=== PATIENT | female | born 1990 | race Two or more races ===

== ENCOUNTER 2024-12-06 13:07 | Emergency (ER) | payer OTHER ==
[2024-12-06 13:15] VITALS: BP 101/70; PULSE 100; RESP 20; TEMP 98.1; BMI 30.9
[2024-12-06 14:09] LABS: ABSOLUTE IMMATURE GRANULOCYTES 0.02 x10^3/uL (0.0-0.031); BASOPHILS # 0.02 x10^3/uL (0.01-0.08); EOSINOPHIL % 0.6 % (0.7-5.8); EOSINOPHILS # 0.04 x10^3/uL (0.04-0.36); HEMATOCRIT 42.3 % (34.1-44.9); MCHC 33.1 g/dl (32.2-35.5); MEAN CELL VOLUME 92.6 fl (79.4-94.8); MEAN PLT VOLUME 9.7 fl (9.4-12.3); MONOCYTE # 0.35 x10^3/uL (0.24-0.86); MONOCYTE % 5.6 % (4.7-12.5); PLATELET COUNT 251 x10^3/uL (182-369); RDW 13.6 % (12.1-16.8)
[2024-12-06 14:15] LABS: HCG,QUALITATIVE URINE Positive
[2024-12-06 14:18] LABS: EPI CELLS >36 /uL (0-25.1); HYALINE CASTS 1 /uL (0-3.1); PH,URINE 5.5 (5.0-8.0); URINE APPEARANCE CLOUDY; URINE BACTERIA 1226 /uL (0-1359); URINE BILIRUBIN NEGATIVE (NEGATIVE); URINE COLOR YELLOW; URINE GLUCOSE (UA) NEGATIVE (NEGATIVE); URINE KETONE 1+ (NEGATIVE); URINE LEUK ESTERASE NEGATIVE (NEGATIVE); URINE NITRITE NEGATIVE (NEGATIVE); URINE PROTEIN NEGATIVE (NEGATIVE); URINE RBC 17 /uL (0-23.9); URINE UROBILINOGEN 0.2 mg/dL (0.2-1.0); URINE WBC 28 /uL (0-25.8)
[2024-12-06 14:29] LABS: CHLORIDE 100 mmol/L (98-107); SODIUM 129 mmol/L (136-145)
[2024-12-06 14:31] LABS: ALBUMIN 4.3 g/dl (3.4-5.0); BLOOD UREA NITROGEN 10.6 mg/dL (7-18); CALCIUM 9.3 mg/dL (8.5-10.1); CO2 25 mmol/L (21-32); GLUCOSE,RANDOM 79 mg/dL (74-106)
[2024-12-06 14:34] LABS: CREATININE 0.7 mg/dL (0.55-1.3)
[2024-12-06 14:35] LABS: BILIRUBIN,TOTAL 0.4 mg/dL (0.2-1); TOT PROT 8.9 g/dl (6.4-8.2)
[2024-12-06 14:37] LABS: ALK PHOS 80 U/L (45-117)
[2024-12-06 14:40] LABS: ANION GAP 3 mmol/L (4-13); POTASSIUM > 10.0 mmol/L (3.5-5.1); SGOT/AST 96 U/L (15-37); SGPT/ALT 33 U/L (13-61)
[2024-12-06 15:35] LABS: HCV DIAGNOSTIC IN-HOUSE W/RFLX NON-REACTIVE (NONREACTIVE)
[2024-12-07 00:35] LABS: HIV INTERPRETATION NEGATIVE (NEGATIVE)
== END 2024-12-06 14:31 | disposition left against medical advice (07) ==
LOC: JER 13:07
DX: O20.9 Hemorrhage in early pregnancy, unspecified (principal); O26.891 Other specified pregnancy related conditions, first trimester; R10.31 Right lower quadrant pain; R10.32 Left lower quadrant pain; R35.0 Frequency of micturition; O99.891 Other specified diseases and conditions complicating pregnancy; R30.0 Dysuria; R31.9 Hematuria, unspecified; Z3A.01 Less than 8 weeks gestation of pregnancy
CPT/HCPCS: 36415; 80053; 81003; 84702; 84703; 85025; 86803; 87086; 87389; 99283-25

== ENCOUNTER 2024-12-06 16:44 | Emergency (ER) | payer OTHER ==
[2024-12-06 16:53] VITALS: RESP 18; BMI 25.2
[2024-12-06 18:29] LABS: POTASSIUM 4.1 mmol/L (3.5-5.1)
[2024-12-06 18:30] LABS: CALCIUM 9.3 mg/dL (8.5-10.1)
[2024-12-06 18:32] LABS: BLOOD UREA NITROGEN 13.1 mg/dL (7-18)
[2024-12-06 18:34] LABS: CREATININE 0.6 mg/dL (0.55-1.3)
[2024-12-06 20:00] VITALS: BP 101/65; PULSE 87; TEMP 98.2
== END 2024-12-06 20:00 | disposition home or self-care (01) ==
LOC: JER 16:44
DX: O23.11 Infections of bladder in pregnancy, first trimester (principal); O20.9 Hemorrhage in early pregnancy, unspecified; O26.891 Other specified pregnancy related conditions, first trimester; R10.31 Right lower quadrant pain; R10.32 Left lower quadrant pain; O99.891 Other specified diseases and conditions complicating pregnancy; R31.9 Hematuria, unspecified; Z3A.01 Less than 8 weeks gestation of pregnancy
CPT/HCPCS: 36415; 76830-TC; 80048; 99284-25